=== PATIENT | female | born 1970 | race Asian ===

== ENCOUNTER 2016-09-11 02:29 | Emergency (ER) | payer BC ==
[~2016-09-11] VITALS: Ht 182.9 cm; Wt 81.6 kg
[~2016-09-11 02:29] MED LIST: FER300 PO; [UNRECOGNIZED DRUG - OTHER]
[2016-09-11 02:57] LABS: BASOPHIL % 0.2 % (0-2); PLATELET COUNT 183 x10^3mcL (130-400)
[2016-09-11 02:58] LABS: RED CELL DISTRIBUTION WIDTH 14.9 % (11.5-14.5)
[2016-09-11 03:51] VITALS: BP 134/76
== END 2016-09-11 03:51 | disposition home or self-care (01) ==
LOC: ED 02:29
PROVIDERS: Emergency Medicine
DX: I83.891 Varicose veins of right lower extremity with other complications (principal); R58 Hemorrhage, not elsewhere classified; D64.9 Anemia, unspecified
CPT/HCPCS: 36415

== ENCOUNTER 2018-09-16 20:34 | Emergency (ER) | payer BC ==
[~2018-09-16] VITALS: Ht 170.2 cm; Wt 75.3 kg
[2018-09-16 20:42] VITALS: Ht 170.2 cm; Wt 75.3 kg
[2018-09-16 21:24] LABS: BASOPHIL % 0.5 % (0-2); PLATELET COUNT 203 x10^3mcL (130-400); RED CELL DISTRIBUTION WIDTH 14.4 % (11.5-14.5)
[2018-09-16 21:40] LABS: CALCIUM 9.1 mg/dL (8.5-10.1); CARBON DIOXIDE 30.6 mmol/L (21-32); CHLORIDE SERUM 105 mmol/L (98-107); CREATININE SERUM 0.7 mg/dL (0.6-1.0); GFR1 > 60 mL/min; GLUCOSE SERUM 92 mg/dL (74-106); POTASSIUM SERUM 3.7 mmol/L (3.5-5.1); SODIUM SERUM 141 mmol/L (136-145)
[2018-09-16 21:43] LABS: FREE THYROXINE INDEX 2.7 ug/dL (1.4-4.5)
[2018-09-16 21:45] LABS: ALBUMIN 3.2 g/dL (3.4-5.0); ALKALINE PHOSPHATASE 53 U/L (46-116); ALT/SGPT 32 U/L (14-59); AST/SGOT 21 U/L (15-37); BILIRUBIN TOTAL 0.5 mg/dL (0.20-1.00); CHOLESTEROL 164 mg/dL (<200); HDL CHOLESTEROL 54 mg/dL (40-60); TOTAL PROTEIN, SERUM 7.4 g/dL (6.4-8.2)
[2018-09-16 22:18] LABS: T3 TOTAL 1.21 ng/mL
[2018-09-16 22:38] LABS: microscopic required? YES; urine erythrocyte 1+ (NEGATIVE)
[2018-09-16 23:46] VITALS: BP 132/86
== END 2018-09-16 23:45 | disposition home or self-care (01) ==
LOC: ED 20:34
PROVIDERS: Emergency Medicine
DX: R42 Dizziness and giddiness (principal); H93.19 Tinnitus, unspecified ear
CPT/HCPCS: 36415; 84439; J8597; Q0092; Q0162

== ENCOUNTER 2019-02-17 11:13 | Emergency (ER) | payer BC ==
[~2019-02-17] VITALS: Ht 170.2 cm; Wt 79.8 kg
[2019-02-17 11:17] VITALS: Ht 170.2 cm; Wt 79.8 kg
[2019-02-17 14:30] VITALS: BP 145/72
== END 2019-02-17 14:30 | disposition home or self-care (01) ==
LOC: ED 11:13
DX: S43.004A Unspecified dislocation of right shoulder joint, initial encounter (principal); W01.0XXA Fall on same level from slipping, tripping and stumbling without subsequent striking against object, initial encounter; Y93.89 Activity, other specified; Y92.89 Other specified places as the place of occurrence of the external cause; Y99.8 Other external cause status; Z91.013 Allergy to seafood
CPT/HCPCS: J1885; J2270; J3490; Q0092